=== PATIENT | male | born 2005 | race Caucasian/White ===

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

== ENCOUNTER 2023-10-09 13:36 | Emergency (ER) | payer BC ==
[~2023-10-09] VITALS: Ht 180.3 cm; Wt 61.2 kg
[2023-10-09 13:51] VITALS: BP 128/75
== END 2023-10-09 16:05 | disposition home or self-care (01) ==
LOC: ER 13:36
DX: S42.032A Displaced fracture of lateral end of left clavicle, initial encounter for closed fracture (principal); V00.321A Fall from snow-skis, initial encounter; Y93.23 Activity, snow (alpine) (downhill) skiing, snowboarding, sledding, tobogganing and snow tubing; Z96.7 Presence of other bone and tendon implants
CPT/HCPCS: 29105; 73030; 99283-25

== ENCOUNTER 2023-10-12 11:05 | Day surgery (SDC) | payer BC ==
[2023-10-12] VITALS (13 sets, daily range): BP systolic 104–123; BP diastolic 45–72
[~2023-10-12] VITALS: Ht 180.3 cm; Wt 64.3 kg
[2023-10-12] MEDS ORDERED: Bupivacaine 0.5% HCl 5 MG/ML 30MLVIAL ONE (12:05)
[2023-10-12] MEDS ORDERED: propofoL 20 ML IV ONE (12:06)
[2023-10-12] MEDS ORDERED: Midazolam HCl 1MG / ML 2ML Vial ONE (12:06)
[2023-10-12] MEDS ORDERED: EpiNEPhrine 1 MG/1 ML 1ML Vial ONE (12:09)
[2023-10-12] MEDS ORDERED: Dexamethasone Sod Phos 10 MG/ML 1ML VIAL ONE (12:11)
[2023-10-12] MEDS ORDERED: Lactated Ringer's 1,000 ML IV SCH (12:30)
[2023-10-12] MEDS ORDERED: CeFAZolin Sodium 2,000 MG in NS 50 ML IV SCH (12:30)
[2023-10-12] MEDS ORDERED: NS IV SCH (13:05)
[2023-10-12] MEDS ORDERED: TRANEXAMIC ACID IV SCH (13:05)
--- NOTE | 2023-10-12 13:20 | NUR ---
1200 PT AMBULATE TO [facility]. LUNGS CLEAR. PT MET DR SÁNCHEZ. GIRLFRIEND AT BEDSIDE. PRE OP TEACHING DONE. 1300 DR ALLEN DOES LEFT CLAVICAL BLOCK. TIME OUT DONE PRIOR TP PROCEDURE. PT PREET PROCEDURE WELL
--- NOTE | 2023-10-12 14:15 | NUR ---
10/12/23 Nithya Feng PRIOR TO ARRIVING IN THE OR, PATIENT RECEIVED A LEFT INTERSCALENE NERVE BLOCK AND A LEFT SUPERFICIAL CERVICAL PLEXUS NERVE BLOCK PERFORMED BY AT BEDSIDE IN THE PREOP SETTING.
[2023-10-12] MEDS ORDERED: OxyCODONE HCL 5 MG TAB PO PRN (15:40)
[2023-10-12] MEDS ORDERED: Ondansetron HCl 2 MG / ML 2ML Vial ONE (16:20)
[2023-10-12] MEDS ORDERED: Ondansetron HCl 2 MG / ML 2ML Vial IV ONE (16:25)
--- NOTE | 2023-10-12 17:12 | NUR ---
Reviewed discharge instructions with patient and his girlfriend. instructions for polar pack provided. pt in no acute distress. dressing clean dry and intact. no drainage. pt still unable to feel or moved left arm. sling in place. iv dc'd intact. pt able to transfer to wheelchair with minimal assistance. pt out of department via [facility].
== END 2023-10-12 17:00 | disposition home or self-care (01) ==
LOC: ORD 11:05 → ORSCMMR 11:05 → ORD 17:00
PROVIDERS: Orthopaedic Surgery Sports Medicine
PROC: 0PPB04Z Removal of Internal Fixation Device from Left Clavicle, Open Approach (ICD-10-PCS; principal; 2023-10-12 12:30)
PROC: 0PSB04Z Reposition Left Clavicle with Internal Fixation Device, Open Approach (ICD-10-PCS; principal; 2023-10-12 12:30)
DX: S42.032A Displaced fracture of lateral end of left clavicle, initial encounter for closed fracture (principal); Z87.81 Personal history of (healed) traumatic fracture; V00.311A Fall from snowboard, initial encounter
CPT/HCPCS: C1713; C1769; J0171; J0690; J1100; J2250; J2405; J2704; J7120